=== PATIENT | male | born 1935 | race Caucasian/White ===

== ENCOUNTER 2020-06-07 14:42 | Outpatient (CLI) | payer MEDICARE, OTHER, SELFPAY ==
--- NOTE | 2020-06-07 15:00 | USCV_ITS ---
Tacho Bong Age: 85 Gender: M : 1935 Exam Date: 06/07/2020 14:30 Ordering Phys: Trever Myrick DPM Technologist: Exam Location: [facility] [place]_ Indication: PREOPERATIVE RIGHT LEFT Brachial 116.00 mmHg Brachial 113.00 mmHg Pressure (mmHg) Waveform Pressure (mmHg) Waveform Pre-Exercise Toe Pressure 100.00 Pre-Exercise Toe/Brachial Index 0.86 FINDINGS Noncompressible arteries of the left ankle. Normal resting TBI on the left side. PVR waveforms showing loss of dicrotic notch. CONCLUSIONS Features of arterial sclerosis with no significant arterial obstruction, based on the above findings on the left side. Dr Bertin Montaño MD [facility] (Electronically Signed) Final Date: 08 June 2020 08:58 S
== END 2020-06-07 14:43 | disposition home or self-care (01) ==
LOC: US 14:44
PROVIDERS: PCP Physician Assistant Medical; Visit Provider Podiatrist Foot & Ankle Surgery
DX: Z01.818 Encounter for other preprocedural examination (principal)
CPT/HCPCS: 93922

== ENCOUNTER → 2020-06-17 10:16 | Outpatient (BNVA) | payer MEDICARE, OTHER, SELFPAY | PROVIDERS: PCP Physician Assistant Medical; Visit Provider Podiatrist Foot & Ankle Surgery | DX: M20.32 Hallux varus (acquired), left foot (principal); M20.42 Other hammer toe(s) (acquired), left foot | CPT/HCPCS: 73630 ==

== ENCOUNTER 2020-06-18 05:56 | Day surgery (SDC) | payer MEDICARE, OTHER, SELFPAY ==
[2020-06-18 06:31] VITALS: BP 141/87; PULSE 61; RESP 16; TEMP 36.6; O2SAT 97
[2020-06-18] MEDS: sodium chloride 0.9% 1,000 ML 30 ML IV (06:49)
--- NOTE | 2020-06-18 06:54 | W.PM.OPSUD ---
Surgery/Procedure H&P Update DATE OF PROCEDURE: June 18, 2020 DATE H&P PERFORMED: 05/31/20 H&P UPDATE INFORMATION: I have reviewed H&P completed within last 30 days, I have examined patient prior to procedure, No changes to prior documentation and H&P is in [facility] EMR on date indicated PREOP DIAGNOSIS: Left hallux malleus deformity. PLANNED PROCEDURE: Operation Date: 06/18/20 07:00 Proposed Procedures p Left Hallux Interphalangeal Joint Fusion 31986 17392 M20.32 L97.522(Left) - Trever Myrick DPM s Left peroneal longus to peroneal brevis tenodesis 80142(Left) - Trever Myrick DPM
--- NOTE | 2020-06-18 06:55 | P.OP_ITS ---
Operative Report Date of procedure: June 18, 2020 Pre-op Diagnosis: Left hallux malleus deformity. Post-op diagnosis: same Post-op Findings: None Procedure Done: Left hallux interphalangeal joint arthrodesis and transfer of extensor hallucis longus tendon to first metatarsal CPT code 25415 Implants: [place] 3.0 mm headless screw x22 mm. [place] 3.0 mm headless screw by 18 mm. Bio-Tenodesis screw provided by [employer] 6 mm x 20 mm. 4-0 Vicryl, 4-0 nylon. 20 cc of Exparel postoperatively. 30 cc of 0.5% Marcaine plain preoperatively. Specimens removed/disposition: None Pathology: none sent Surgeon: Trever Myrick D.P.M. Science Specialist: Babatunde Anesthesia: MAC Estimated blood loss: 5 mL Tourniquet time: See intraoperative documentation IV fluids: None Urine output: None Complications: None Condition: stable Disposition: PACU Brief History: Mr. Titus is a pleasant 85-year-old male with persistent pain and wound formation at the dorsal aspect of his left hallux interphalangeal joint. Conservative measures have been exhausted consisting of supportive and accommodative shoes with high toe box, padding, spacers, gel sleeves and Band- Aids as well as recurring wound care. His toe is in a nonreducible hallux malleus position and dorsiflexed. He is wishing to pursue surgical options at this time as conservative measures are not yielding results and he continues to have pain with daily activities. Recommending a left hallux interphalangeal joint arthrodesis with extensor hallucis longus tendon transfer to first metatarsal. Risks include pain, bleeding, numbness, infection, persistent swelling, surgical site dehiscence, bruising, neuropraxia, neuritis, nonunion, delayed union, malunion, hardware failure, hardware irritation, deep hardware infection, need for further surgical intervention and need for antibiotic therapy. Patient is agreeable wishes to proceed. No guarantees written, expressed or implied. Procedure: Under mild sedation the patient was brought to the operating room and placed on the operating table in supine position. A timeout was performed. Anesthesia was administered by the anesthesia service. Local anesthesia injected by myself consisting of 30 cc of 0.5% Marcaine plain. Well-padded pneumatic tourniquet applied to the left ankle. Left lower extremity was scrubbed, prepped and draped utilizing normal aseptic technique. Left foot was examined a weighted with an Esmarch bandage and the ankle was inflated to 250 mmHg. Attention was directed to the dorsal aspect of the left hallux interphalangeal joint where 2 semi-elliptical converging incisions were carried out in a transverse fashion just dorsal to the left hallux interphalangeal joint skin bridge was removed and passed from operative field. Dissection carried down to the joint which was significant arthrosis. Sagittal saw utilized to resect head of the proximal phalanx and base of the distal this was passed from operative field. Area was flushed with saline solution followed by subchondral drilling and fixation utilizing [employer] 3.0 headless screws there was a 22 mm screw and 18 mm screw with excellent bony apposition and compression noted. Temporary fixation was removed. Position confirmed with intraoperative fluoroscopy noted to be appropriate. Incision site was flushed with saline solution. Capsular and periosteal and subcutaneous tissue structures reapproximated utilizing 4-0 Vicryl. Skin reapproximated utilizing 4-0 nylon. Attention was then directed to the dorsum of the first metatarsal and the extensor hallucis longus tendon was palpated just medial to the tendon and a linear longitudinal incision was made 1 cm in length tendon was identified and transected and passed through the first metatarsal from dorsal to plantar utilizing a Jose Free needle and fixated utilizing a Bio-Tenodesis screw provided by [employer] this was a 6 mm x 20 mm screw with excellent bony apposition and compression noted. Reduction of the first ray plantarflexion was appreciated in an improved anatomical rectus hallux interphalangeal joint also appreciated. Incision site was flushed with saline solution. Periosteum and subcutaneous tissue closed with 4-0 Vicryl. Skin closed with 4-0 nylon. The incision sites were dressed with nonadherent Adaptic, sterile 4 x 4's, Kerlix and Al wrap. Postop shoe was applied. Tourniquet when deflated I appreciated a prompt hyperemic response noted to the distal digits of the left foot. Patient tolerated the procedure well and was transferred to the PACU with vital signs stable and vascular status intact. Following a period of postoperative monitoring he will be discharged home may be limited weightbearing with a postop shoe otherwise to elevate and rest his left foot. Will follow-up in 1 week in podiatry clinic for nursing visit and dressing change. Pain medication sent to [facility]. Also of note prior to closure of skin total of 20 cc of Exparel utilized for postoperative pain control.
--- NOTE | 2020-06-18 06:57 | P.ANESASSM_ITS ---
Pre-Anesthetic Assessment Pre-Anesthetic Assessment: Height/Weight: Height 1.83 m Weight 96.162 kg Temp Pulse Resp BP Pulse Ox 97.8 F 61 16 141/87 97 06/18/20 06:31 06/18/20 06:31 06/18/20 06:31 06/18/20 06:31 06/18/20 06:31 Preop Diagnosis: Left hallux malleus deformity. Proposed Procedure: Operation Date: 06/18/20 07:00 Proposed Procedures p Left Hallux Interphalangeal Joint Fusion 26790 57915 M20.32 L97.522(Left) - Trever Myrick DPM s Left peroneal longus to peroneal brevis tenodesis 04166(Left) - Trever Myrick DPM Was Beta Bennett taken within 24 hours: N/A Last intake: Intake Last Liquid Date 06/17/20 Last Liquid Time 21:00 Last Solid Date 06/17/20 Last Solid Time 18:30 Social: Social History: No alcohol and No tobacco Exam: Pre-Anes Outpt Exam: alert, oriented x 3, clear to auscultation bi laterally and regular rate & rhythm Airway: Submandibular: WNL Cervical ROM: WNL MP: 2 History/ROS: No significant history except as noted Pulmonary: Pulmonary: None reported CV/HEM: CV/HEM: None reported : : None reported Hepatic: Hepatic: None reported GI: GI: GERD Metabolic: Metabolic: Thyroid Musc/skel: Musc/skel: OA/DJD Neuropsych: Neuropsych: Anxiety Comments: very hard of hearing Anesthetic Plan: ASA status: 2 Anesthesia: Anesthesia Evaluation and MAC Risk of > 500 ml blood loss (7ml/kg in children): No Meds/Allergies Current Medications: Current Medications Generic Name Dose Route Start Last Admin Trade Name Freq PRN Reason Stop Dose Admin Sodium Chloride 1,000 mls @ 30 ml s/hr 06/18/20 06:00 06/18/20 06:49 Sodium Chloride 0.9% IV 06/19/20 05:59 30 mls/hr .Q24H RACHELLE Administration PFSH Anesthesia PFSH: Medical History Glaucoma History of MRSA infection Hypothyroid Restless leg syndrome Surgical History Artificial knee joint present H/O knee surgery History of ankle surgery Family History Denies family history of Diabetes Cancer Data Anesthesia Cardiac Studies: No Data to Display
--- NOTE | 2020-06-18 08:20 | XR_ITS ---
WS: [id number] Left foot, 3 views, 06/18/2020 Clinical Data: post op Comparison: Left foot, 06/17/2020. Findings: The patient has had the flexion deformity of the left first toe reduced and there are 2 orthopedic pi ns fusing the left first IP joint. The hammertoe deformities of the second through fifth toes remains the same. XR/XR foot LT min 3V* [id number] Impression: Fusion of the left first toe IP joint with correction of flexion deformity.
[2020-06-18 08:25] VITALS: BP 128/81; PULSE 67; RESP 16; TEMP 36.3; O2SAT 95
[2020-06-18 08:40] VITALS: BP 134/91; PULSE 66; RESP 16; TEMP 36.6; O2SAT 96
--- NOTE | 2020-06-18 09:00 | ANE.PACU2 ---
Inpatient post-anesthesia follow up: Airway intact: Yes Vital signs: Temperature 98 F Pulse Rate 66 Respiratory Rate 16 Blood Pressure 134/91 Pulse Oximetry 96 Oxygen Delivery Me thod Room Air Oxygen Flow Rate Fraction of Inspir ed Oxygen Hydration adequate: Yes Nausea and vomiting: No Pain level: 1 Mental status: Baseline
== END 2020-06-18 09:10 | disposition home or self-care (01) ==
PROVIDERS: PCP Physician Assistant Medical; Visit Provider Podiatrist Foot & Ankle Surgery
PROC: (CPT 28750; principal; 2020-06-18 07:00)
PROC: (CPT 28740; 2020-06-18 07:00)
DX: M20.32 Hallux varus (acquired), left foot (principal); K21.9 Gastro-esophageal reflux disease without esophagitis; M19.90 Unspecified osteoarthritis, unspecified site; Z86.14 Personal history of Methicillin resistant Staphylococcus aureus infection; E03.9 Hypothyroidism, unspecified
CPT/HCPCS: 28760; 12345; 73630; C1713; C9290; J0690; J2704; J3490; J7030

== ENCOUNTER → 2020-07-01 15:03 | Outpatient (BNVA) | payer MEDICARE, OTHER, SELFPAY | PROVIDERS: PCP Physician Assistant Medical; Visit Provider Podiatrist Foot & Ankle Surgery | DX: M20.42 Other hammer toe(s) (acquired), left foot (principal); L97.522 Non-pressure chronic ulcer of other part of left foot with fat layer exposed; M20.32 Hallux varus (acquired), left foot | CPT/HCPCS: 73630 ==

== ENCOUNTER → 2020-07-14 13:07 | Outpatient (BNVA) | payer MEDICARE, OTHER, SELFPAY | PROVIDERS: PCP Physician Assistant Medical; Visit Provider Podiatrist Foot & Ankle Surgery | DX: M20.42 Other hammer toe(s) (acquired), left foot (principal); L97.522 Non-pressure chronic ulcer of other part of left foot with fat layer exposed; M20.32 Hallux varus (acquired), left foot; Z98.890 Other specified postprocedural states | CPT/HCPCS: 73630 ==

== ENCOUNTER → 2020-11-22 13:26 | Outpatient (BNVA) | payer MEDICARE, OTHER, SELFPAY | PROVIDERS: PCP Physician Assistant Medical; Visit Provider Podiatrist Foot & Ankle Surgery | DX: Z98.890 Other specified postprocedural states (principal); M20.42 Other hammer toe(s) (acquired), left foot; L97.522 Non-pressure chronic ulcer of other part of left foot with fat layer exposed; M20.32 Hallux varus (acquired), left foot; Z98.1 Arthrodesis status | CPT/HCPCS: 73630 ==

== ENCOUNTER → 2021-11-15 00:01 | Outpatient (BNVA) | payer MEDICARE, OTHER, SELFPAY | PROVIDERS: PCP Physician Assistant Medical; Visit Provider Podiatrist Foot & Ankle Surgery | DX: Z20.822 Contact with and (suspected) exposure to COVID-19 (principal); Z01.818 Encounter for other preprocedural examination | CPT/HCPCS: 87635 ==

== ENCOUNTER 2021-11-18 05:54 | Day surgery (SDC) | payer MEDICARE, OTHER, SELFPAY ==
[2021-11-17 12:52] VITALS: BMI 29.1
--- NOTE | 2021-11-18 | SCC_ITS ---
Procedure done: Deep hardware removal and arthrodesis of right hallux interphalangeal joint for correction of hallux malleus and painful hardware. CPT codes 76213 and 51810 9 seconds of fluoroscopic guidance, for a cumulative dose of 0.1 mGy, was provided to Dr. Myrick by the radiology department. C-arm images of the RIGHT footwere saved for the patient's permanent record. [facility]
[2021-11-18 06:23] VITALS: BP 157/104; PULSE 63; RESP 16; TEMP 36.3; O2SAT 96
[2021-11-18] MEDS: sodium chloride 0.9% 1,000 ML 30 ML IV (06:35)
--- NOTE | 2021-11-18 06:52 | ANES.PREANE2 ---
Pre-Anesthetic Assessment Height/Weight: Height 1.83 m Weight 97.522 kg Temp Pulse Resp BP Pulse Ox 97.3 F L 63 16 157/104 96 11/18/21 06:23 11/18/21 06:23 11/18/21 06:23 11/18/21 06:23 11/18/21 06:23 Preop Diagnosis: Painful hardware and hallux malleus left. Operation Date: 11/18/21 07:00 Proposed Procedures p Hardware Removal left foot 55707/79588/T84.84XA/M20.32(Left) - Trever Myrick DPM s Arthrodesis Foot(Left) - Trever Myrick DPM Familial anesthetic complications: None Was Beta Bennett taken within 24 hours: N/A Was Clonidine taken within 24 hours: N/A Last intake: Intake Last Liquid Date 11/17/21 Last Liquid Time 20:00 Last Solid Date 11/17/21 Last Solid Time 18:00 Social No alcohol and No tobacco Exam alert, oriented x 3, clear to auscultation bilaterally and regular rate & rhythm Airway Submandibular: within normal limits Cervical ROM: within normal limits Mallampati: Class II Dentition: chipped CV/HEM Peripheral Vascular Disease GI Gastroesophageal Reflux Disease Metabolic Thyroid Disease Neuropsych Neuropathy Anesthetic Plan ASA status: 3 Anesthesia: MAC Medications/Allergies Home Medications Medication Instructions Recorded Confirmed Last Taken Type levothyroxine 175 mcg tablet 175 mcg PO DAILY 12/15/19 11/18/21 11/17/21 History omeprazole 20 mg capsule,delayed 20 mg PO DAILY 12/15/19 11/18/21 11/17/21 History release ropinirole 4 mg tablet 4 mg PO BEDTIME 12/15/19 11/18/21 11/17/21 History aspirin 81 mg chewable tablet 81 mg PO DAILY 06/17/20 11/18/21 11/17/21 History timolol maleate 0.5 % eye drops 1 drp OPHTHALMIC (EYE) DIRECTED 06/17/20 11/18/21 11/18/21 History cephalexin 500 mg capsule 500 mg PO Q8H 11/17/21 11/18/21 11/17/21 History sertraline 25 mg tablet 25 mg PO DAILY 11/17/21 11/18/21 11/17/21 History tolterodine 2 mg capsule,extended 2 mg PO DAILY 11/17/21 11/18/21 11/17/21 History release 24 hr Allergies Allergy/AdvReac Type Severity Reaction Status Date / Time methazolamide Allergy Intermediate hives Verified 11/17/21 12:47 [From Neptazane] ibuprofen Allergy ALGY-Rash Verified 11/17/21 12:47 tamsulosin [From Flomax] Allergy ALGY-Rash Verified 11/17/21 12:47 Current Medications Generic Name Dose Route Start Last Admin Trade Name Freq PRN Reason Stop Dose Admin Sodium Chloride 1,000 mls @ 30 mls/hr 11/18/21 06:15 11/18/21 06:35 Sodium Chloride 0.9% IV 11/19/21 06:14 30 mls/hr .Q24H RACHELLE Administration PFSH Anesthesia Medical History Glaucoma History of MRSA infection Hypothyroid Restless leg syndrome Surgical History Artificial knee joint present H/O knee surgery History of ankle surgery Family History Denies family history of Diabetes Cancer Social History Smoking and tobacco status: never smoked Data Anesthesia Cardiac Studies: No Data to Display
[2021-11-18] MEDS: lidocaine 1% INJ 20 mL 15 ML XX (07:19)
--- NOTE | 2021-11-18 07:51 | P.OP_ITS ---
Operative Report Date of procedure: November 18, 2021 Pre-op diagnosis: Painful hardware and hallux malleus left. Post-op diagnosis: Same Post-op findings: None Procedure done: Deep hardware removal and arthrodesis of right hallux interphalangeal joint for correction of hallux malleus and painful hardware. CPT codes 37576 and 10977 Implants: 4.0 mm headed [place] screw 26 mm in length. 4-0 Vicryl, 4-0 nylon. Specimens removed/disposition: None Pathology: None Surgeon: Trever Myrick D.P.M. [employer] Craftsman: Karie Estimated blood loss: Less than 5 30 IV fluids: 0 Urine output: 0 Complications: None Findings: None Brief History: Patient is a pleasant 86-year-old male with painful retained hardware that has failed at the arthrodesis site of left great toe hallux interphalangeal joint. Recommended hardware removal and resection of nonunion with arthrodesis of the left hallux interphalangeal joint. Patient is agreeable wishes to proceed. N.p.o. since midnight. Covid screening negative. Risks include pain, bleeding, numbness, infection, hardware failure, delayed union, malunion, nonunion, transfer pressure, transfer lesion, swelling and chronic numbness, need for further surgical intervention. Patient is agreeable wishes to proceed. Procedure: Under mild sedation the patient was brought to the operating room and remained on the gurney in supine position. A timeout was performed. Anesthesia was then administered by the anesthesia service. Local anesthesia injected by myself consisting of one-to-one mixture 1% lidocaine and 0.5% Marcaine plain and a left hallux block fashion. Well-padded pneumatic tourniquet applied to the left ankle. The left lower extremity was then scrubbed, prepped and draped utilizing normal aseptic technique. Left foot was exanguinated with an Esmarch bandage and a tourniquet inflated to 250 mmHg. Attention was directed to the dorsal aspect of the left great toe where prior hardware was palpated medially, percutaneous incision was made and the hardware was removed this was a 3.0 mm Claire screw this was passed in operative field, and like fashion the second screw was removed laterally. Both incisions were flushed with saline solution and closed with 4-0 nylon. Attention was directed to the hallux interphalangeal joint of the left foot where a transverse semielliptical incision was made converging in nature and a skin bridge passed from the operative field, osteotomy through the distal and proximal phalanx was performed followed by saline flush, subchondral drilling and fixation for arthrodesis site utilizing a Claire 4 mm headed screw with excellent bony apposition and compression noted without violating the first metatarsophalangeal joint. Incision was then flushed with saline solution. Intraoperative C arm utilized to confirm placement of the fixation noted to be excellent and within the mid body of the distal and proximal phalanx. Closure with 4-0 Vicryl subcutaneous tissue and tendinous structures as well as 4-0 nylon at skin. Dressing consisting of Adaptic, sterile 4 x 4, Kerlix, Al wrap and postop shoe was applied. Tourniquet was deflated and a prompt hyperemic response was noted to the distal digits of the left foot. Patient tolerated the procedure and anesthesia well and was transferred to the PACU with vital signs s table vascular status intact. Following a period of postop monitoring he will be discharged home is utilize a postop shoe or cam boot at all times otherwise he is to rest and elevate.
--- NOTE | 2021-11-18 07:51 | W.PM.OPSUD ---
Surgery/Procedure H&P Update DATE OF PROCEDURE: November 18, 2021 DATE H&P PERFORMED: 11/15/21 CHANGES TO PREVIOUS DOCUMENTATION: none PREOP DIAGNOSIS: Painful hardware and hallux malleus left. PLANNED PROCEDURE: Operation Date: 11/18/21 07:00 Proposed Procedures p Hardware Removal left foot 49654/51664/T84.84XA/M20.32(Left) - Trever Myrick DPM s Arthrodesis Foot(Left) - Trever Myrick DPM
[2021-11-18 07:53] VITALS: BP 135/82; PULSE 62; RESP 18; TEMP 36.3; O2SAT 96
[2021-11-18 08:00] VITALS: BP 130/92; PULSE 63; RESP 16; TEMP 36.8; O2SAT 98
--- NOTE | 2021-11-18 16:18 | ANE.PACU2 ---
Inpatient post-anesthesia follow up: Airway intact: Yes Vital signs: Temperature 98.2 F Pulse Rate 63 Respiratory Rate 16 Blood Pressure 130/92 Pulse Oximetry 98 Oxygen Delivery Me thod Room Air Oxygen Flow Rate Fraction of Inspir ed Oxygen Hydration adequate: Yes Nausea and vomiting: No Pain level: 1 Mental status: Baseline
== END 2021-11-18 08:30 | disposition home or self-care (01) ==
PROVIDERS: PCP Registered Nurse; Visit Provider Podiatrist Foot & Ankle Surgery
PROC: (CPT 20680; principal; 2021-11-18 07:00)
PROC: (CPT 28740; 2021-11-18 07:00)
DX: M20.42 Other hammer toe(s) (acquired), left foot (principal); T84.84XA Pain due to internal orthopedic prosthetic devices, implants and grafts, initial encounter; I73.9 Peripheral vascular disease, unspecified; K21.9 Gastro-esophageal reflux disease without esophagitis; Z79.82 Long term (current) use of aspirin; Z86.14 Personal history of Methicillin resistant Staphylococcus aureus infection
CPT/HCPCS: 20680; 28755; 76000; C1713; J0690; J2704; J3010; J3490; J7030

== ENCOUNTER → 2021-12-29 12:55 | Outpatient (BNVA) | payer MEDICARE, OTHER, SELFPAY | PROVIDERS: PCP Family Medicine; Visit Provider Podiatrist Foot & Ankle Surgery | DX: Z98.890 Other specified postprocedural states (principal) | CPT/HCPCS: 73630 ==

== ENCOUNTER 2022-01-11 08:50 | Outpatient (CLI) | payer MEDICARE, OTHER, SELFPAY ==
[2022-01-11 11:21] LABS: Basophils % 0.6 %; Eosinophils # 0.5 10^3/uL (0.0-0.8); Eosinophils % 8.1 %; Hematocrit 41.8 % (42.0-52.0); Hemoglobin 12.7 g/dL (11.7-16.6); Lymphocytes # 1.6 10^3/uL (0.8-4.8); Lymphocytes % 25.7 %; Mean Corpuscular HGB Conc 30.4 g/dL (30.0-36.0); Mean Corpuscular Hemoglobin 24.8 pg (28.0-34.0); Mean Corpuscular Volume 81.6 fl (80-94); Mean Platelet Volume 9.8 fL (7.4-10.4); Monocytes # 0.5 10^3/uL (0.2-0.9); Monocytes % 8.6 %; Neutrophils # 3.51 10^3/uL (1.8-7.7); Neutrophils % 56.7 %; Nucleated Red Blood Cells % 0 %; Platelet Count 245 10^3/cmm (130-400); Red Blood Count 5.12 10^6/uL (4.1-5.3); Red Cell Distribution Width 16.5 % (12.1-15.1); White Blood Count 6.2 10^3/uL (4.0-10.0)
[2022-01-11 11:27] LABS: Erythrocyte Sedimentation Rate 31 mm/hr (0-10)
[2022-01-11 11:52] LABS: Calcium 9.7 mg/dL (8.5-10.5)
[2022-01-11 12:19] LABS: Alanine Aminotransferase < 5 U/L (0-41); Albumin Level 3.8 g/dL (3.5-5.2); Alkaline Phosphatase 124 IU/L (40-130); Anion Gap 15.7 (5-19); Aspartate Amino Transferase 15 U/L (0-40); Blood Urea Nitrogen 22 mg/dL (8-23); Calcium 9.7 mg/dL (8.5-10.5); Carbon Dioxide 22 mmol/L (22-29); Chloride 105 mmol/L (98-107); Globulin 3.7 g/dL (1.3-4.6); Glucose 88 mg/dL (65-115); Homocysteine 16.93; Iron 46 ug/dL (59-158); Lactate Dehydrogenase 166 U/L (135-225); Osmolality Calculated 289 mOsm/kg (285-295); Percent Saturation 27.5 % (20-50); Potassium 4.7 mmol/L (3.5-5.1); Sodium 138 mmol/L (136-145); Total Bilirubin 0.3 mg/dL (0.15-1.2); Total Iron Binding Capacity 167 mcg/dl; Total Protein 7.5 g/dL (6.6-8.7); Unsaturated Iron Binding 121 ug/dL (112-347)
[2022-01-11 12:35] LABS: Vitamin B12 356 pg/mL (232-1245)
[2022-01-11 12:44] LABS: Immunoglobulin IGA 214 mg/dL (70-400); Immunoglobulin IGG 1204 mg/dL (700-1600)
[2022-01-11 13:31] LABS: Immunoglobulin IGM 1007 mg/dL (40-230)
[2022-01-11 13:47] LABS: LAB Peripheral Smear Sent for Review
[2022-01-11 14:08] LABS: Parathyroid Hormone 139.3 pg/mL (15-65)
[2022-01-12 09:37] LABS: PROTEIN, TOTAL 6.8 g/dL (6.1-8.1)
--- NOTE | 2022-01-12 10:09 | ONC CON_ITS ---
Dr. Pruitt New Patient Note Patient: Bong Titus Unit #: [id number]: 1935 Dicatated By: Morro Pruitt M.D.Date of Visit: Jan 11, 2022 Onc MED New Patient/Consult Referring Physician: Dr. DANGELO RIGGS M.D. Dr. Dom Stinson M.D. Chief Complaint: Anemia/monoclonal gammopathy. History of Present Illness: This is an 86 year-old man with a history of iron deficiency anemia. He has now been found to have a low level IgM monoclonal gammopathy. His medical history is significant for having undergone bilateral total knee arthroplasty in 1990 and again in . He had subsequently developed staph infection in his knee joints, apparently with associated bacteremia. He had been able to preserve the prosthetic joints, though he had remained on chronic antibiotic suppression with doxycycline. I had seen him in August 2013 in regard to a mild anemia. There did appear to be some component of iron deficiency, but he had remained mildly anemic despite having been given parenteral iron replacement on 2 occasions. I had last seen him in January 2015. At that time he was still mildly anemic with hemoglobin 11.2 g. His renal function was normal with BUN 24 and creatinine 1.04 mg/dL. His calcium, though, was slightly elevated at 10.5 mg/dL. During follow-up care with Dr. Stinson he continued to have mild anemia. He also developed stage III chronic kidney disease, and he was noted to have mild hypercalcemia. His CBC from 08/30/2021 showed hemoglobin mildly decreased at 11.0 g with hematocrit 34.8%. The red cell indices were borderline low. The white blood cell count was 9100 and the platelet count was 338,000. His comprehensive metabolic profile showed elevated BUN and creatinine at 26 and 1.52 mg/dL. Calcium was slightly elevated at 11.0 mg/dL. The bilirubin and liver enzymes were normal. His further laboratory studies on 11/21/2021 included a serum protein electrophoresis which showed an IgM lambda monoclonal protein quantitating at 1.3 g/dL. His parathyroid hormone level was mildly elevated at 112 pg/mL. TSH was normal at 2.16 mIU/L. He is seen now in regard to the monoclonal gammopathy. He feels tired/fatigued and he has limited activity. He still piddles around in his shop, and he is able to do some light work. His ECOG score is 1. Appetite has been good. His weight has been stable. He has no fever or night sweats. He has sinus drainage. Has not had sore mouth or throat. He has some cough with the drainage. He is sometimes short of breath. He does not complain of chest pain. Recently he has had some nausea. He still has some heartburn/acid reflux despite taking Prilosec. He previously had been taking Tums, but that was stopped because of the high calcium. Bowel function has been okay. He has urinary frequency and nocturia. He has chronic pain in the right knee and leg. He also has joint pain in his hands and shoulders. He occasionally has headache. He sometimes has dizziness. He has numbness in his hands and feet, which appears to be getting gradually worse. He has anxiety and depression. Past Medical History: His medical history includes anemia, anxiety, chronic kidney disease (stage III), degenerative arthritis, depression, gastroesophageal reflux disease, glaucoma, hyperlipidemia, hypothyroidism, nephrolithiasis, and restless leg syndrome. 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 Medications: Aspirin 1 (81 mg) Tablet Oral daily, Cephalexin Capsule Oral, CVS Omeprazole 1 (20 mg) Tablet, enteric coated Oral b.i.d., Doxycycline Hyclate 1 Capsule (of 100 mg) Oral b.i.d., Fluticasone Propionate 2 [place](s) (of 50 mcg/act) Suspension Nasal daily, ICaps AREDS Formula Tablet Oral daily, Levothroid 1 (200 mcg) Tablet Oral daily, Lotemax (0.5 %) Gel (jelly) Ophthalmic four times a day, Naproxen Sodium 1 Tablet (of 220 mg) Oral every am, [place] 3-6-9 Fatty Acids Tablet, chewable Oral, ROPINIRole HCl 1 (4 mg) Tablet Oral at bedtime, Sertraline HCl 1 Tablet (of 25 mg) Oral daily, Stool Softener Laxative 1 Capsule (of 100 mg) Oral b.i.d. PRN, Timolol Hemihydrate 1 (0.5 %) Solution Ophthalmic daily, Tolterodine Tartrate ER 1 Capsule (of 2 mg) Capsule SR 24 HR Oral daily, vitamin d3-folic acid 1 Tablet (of 5000 Unit(s)) Oral daily Allergies: Chlorhexidine, FLUoxetine HCl, HYDROcodone-Acetaminophen, Ibuprofen, Iodinated Contrast Media, Lovastatin, methazolAMIDE, NSAIDS, Oxybutynin Chloride, Providone Iodine, SULFA, Tamsulosin HCl, and Trimethoprim. Social History: Mr. Titus is and he is retired. He is a non-smoker. He does not drink alcohol. Family History: Father of heart attack at age 69. Mother had diabetes and she had a stroke. She ultimately of old age. A sister in a motor vehicle accident. Another sister of stroke following brain surgery. A brother has heart disease. Review Of Symptoms: Constitutional - He feels tired. He has limited activity, but he is able to do light work. Appetite is good and weight is stable. He has no fever or night sweats. ECOG score is 1, Eyes - No change in vision. He has glaucoma, ENMT - He has hearing loss and tinnitus. He has sinus congestion/drainage. No mouth sores. No sore throat or difficulty swallowing, Hematologic/Lymphatic - He has easy bruising, Respiratory - He sometimes gets short of breath. He has cough with the sinus drainage. No pleuritic pain or hemoptysis, Cardiovascular - No angina pain. No palpitations, Gastrointestinal - Recently has had some nausea. He has heartburn/acid reflux. No diarrhea or constipation. No blood in the stool or black stools, Genitourinary (M) - No dysuria or hematuria. He has urinary frequency and nocturia. No urgency or incontinence, Musculoskeletal - He has chronic pain in the right knee and leg. He also has pain in his shoulders and hands, Integumentary - No skin rash or other skin changes, Neurologic - He occasionally has headache. He sometimes has dizziness. He has numbness in his hands and feet, Psychiatric - He has a history of depression. Vital Signs: Performed on Jan 11, 2022 09:18: 0, 0, 28.48, 2.18 sq.m, 72.00 in, 98 %, 71 /min, 17 /min, 140/82 mm(hg), 97.0 F (LOW), and 210 lbs (HIGH). Physical Examination: Constitutional - He looks pretty good generally, Eyes - Sclerae nonicteric. Conjunctivae clear, ENMT - No lesions noted in the oral cavity, Hematologic/Lymphatic - No cervical, clavicular, or axillary adenopathy, Respiratory - Lungs are clear with good air movement bilaterally, Cardiovascular - Heart rhythm is regular. There is a III/ systolic murmur which is loudest at the apex. There is no gallop or rub noted, Abdomen - Soft and non-tender. Liver and spleen are not enlarged. There is no abdominal mass or ascites noted and there is no inguinal adenopathy, Extremities - There is some chronic swelling at the right ankle. There is otherwise no edema. There are degenerative arthritis changes in both hands, Integumentary - No rashes. No suspicious skin lesions noted, Neurologic - No focal neurologic deficits noted. Problem List: 1. IgM monoclonal gammopathy of undetermined significance. 2. Mild anemia, which is chronic. There may still be some component of iron deficiency. Other potential contributing factors would be chronic kidney disease and the possibility of an underlying lymphoproliferative disorder. 3. Mild hypercalcemia. This appears to be a fairly longstanding duration, and it may be due to primary hyperparathyroidism. 4. Stage III chronic kidney disease. 5. 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 6. Hyperlipidemia. 7. Hypothyroidism. 8. GERD. 9. Degenerative arthritis. 10. Restless leg syndrome. 11. History of nephrolithiasis. 12. Glaucoma. 13. Anxiety and depression. Problems Addressed with this Encounter and Plan: 1. Patient with low level IgM monoclonal gammopathy. At this point the significance is uncertain. There is a possibility, though, of an underlying lymphoproliferative disorder (Waldenstrom's macroglobulinemia). To that end, it would be a potential cause for his peripheral neuropathy symptoms. It also could potentially be contributing to the anemia, though I rather doubt it. I also doubt that it is in any way related to the hypercalcemia. It is worth noting that there was no monoclonal protein detected on the protein electrophoresis with his initial evaluation in 2012. At least initially I will repeat his CBC and protein electrophoresis, and I also want to check quantitative immunoglobulin levels. At some point we will have to determine whether or not it will be beneficial to proceed with bone marrow aspiration/biopsy, the main concern being to what extent the monoclonal gammopathy may be contributing to his peripheral neuropathy. 2. He remains mildly anemic. This is probably a combination of iron deficiency and chronic disease anemia. I will repeat the serum iron studies, and he may require some additional parenteral iron replacement. 3. He has mild hypercalcemia. This appears to be a fairly longstanding duration, and it really has not worsened significantly. It may be due to primary hyperparathyroidism. I would like to repeat the PTH level and consider further treatment as indicated. Signed By: Morro Pruitt M.D. <<Signature on File>>
[2022-01-13 08:07] LABS: ABNORMAL PROTEIN BAND 1 0.9 g/dL (NONE DETECTED); ALBUMIN 3.5 g/dL (3.8-4.8); ALPHA 1 GLOBULIN 0.3 g/dL (0.2-0.3); ALPHA 2 GLOBULIN 0.7 g/dL (0.5-0.9); BETA 1 GLOBULIN 0.4 g/dL (0.4-0.6); BETA 2 GLOBULIN 0.4 g/dL (0.2-0.5); GAMMA GLOBULIN 1.6 g/dL (0.8-1.7)
[2022-01-14 15:47] LABS: Methylmalonic Acid 183 nmol/L (87-318)
== END 2022-01-11 08:51 | disposition home or self-care (01) ==
PROVIDERS: PCP Family Medicine; Visit Provider Internal Medicine Hematology & Oncology
DX: D47.2 Monoclonal gammopathy (principal); D50.9 Iron deficiency anemia, unspecified; E83.52 Hypercalcemia; N18.2 Chronic kidney disease, stage 2 (mild); E78.5 Hyperlipidemia, unspecified; E03.9 Hypothyroidism, unspecified; K21.9 Gastro-esophageal reflux disease without esophagitis; F41.9 Anxiety disorder, unspecified; F32.A Depression, unspecified; Z79.899 Other long term (current) drug therapy
CPT/HCPCS: 80053; 82310; 82607; 82784; 83090; 83540; 83550; 83615; 83921; 83970; 84155; 84165; 85025; 85651; 99205

== ENCOUNTER → 2022-04-03 10:09 | Outpatient (BNVA) | payer MEDICARE, OTHER, SELFPAY | PROVIDERS: PCP Family Medicine; Visit Provider Podiatrist Foot & Ankle Surgery | DX: Z98.890 Other specified postprocedural states (principal) | CPT/HCPCS: 99213 ==

== ENCOUNTER → 2022-08-02 09:50 | Outpatient (BNVA) | payer MEDICARE, OTHER, SELFPAY | PROVIDERS: PCP Family Medicine; Visit Provider Podiatrist Foot & Ankle Surgery | DX: I73.9 Peripheral vascular disease, unspecified (principal); G62.9 Polyneuropathy, unspecified; M20.42 Other hammer toe(s) (acquired), left foot; M20.32 Hallux varus (acquired), left foot | CPT/HCPCS: 99213 ==

== ENCOUNTER → 2022-11-01 12:48 | Outpatient (BNVA) | payer MEDICARE, OTHER, SELFPAY | PROVIDERS: PCP Family Medicine; Visit Provider Podiatrist Foot & Ankle Surgery | DX: I73.9 Peripheral vascular disease, unspecified (principal); G62.9 Polyneuropathy, unspecified; M20.42 Other hammer toe(s) (acquired), left foot; M20.32 Hallux varus (acquired), left foot | CPT/HCPCS: 11055; 11721 ==

== ENCOUNTER → 2023-01-30 10:13 | Outpatient (BNVA) | payer MEDICARE, OTHER, SELFPAY | PROVIDERS: PCP Family Medicine; Visit Provider Podiatrist Foot & Ankle Surgery | DX: I73.9 Peripheral vascular disease, unspecified (principal); L60.8 Other nail disorders; G62.9 Polyneuropathy, unspecified; M20.42 Other hammer toe(s) (acquired), left foot; M20.32 Hallux varus (acquired), left foot | CPT/HCPCS: 11055; 11721 ==

== ENCOUNTER → 2023-04-24 09:38 | Outpatient (BNVA) | payer MEDICARE, OTHER, SELFPAY | PROVIDERS: PCP Family Medicine; Visit Provider Podiatrist Foot & Ankle Surgery | DX: L60.8 Other nail disorders (principal); I73.9 Peripheral vascular disease, unspecified; G62.9 Polyneuropathy, unspecified; M20.42 Other hammer toe(s) (acquired), left foot; M20.32 Hallux varus (acquired), left foot; L60.3 Nail dystrophy; L84 Corns and callosities | CPT/HCPCS: 11056; 11721 ==

== ENCOUNTER → 2023-07-30 14:20 | Outpatient (BNVA) | payer MEDICARE, OTHER, SELFPAY | PROVIDERS: PCP Family Medicine; Visit Provider Podiatrist Foot & Ankle Surgery | DX: I73.9 Peripheral vascular disease, unspecified (principal); G62.9 Polyneuropathy, unspecified; M20.42 Other hammer toe(s) (acquired), left foot; M20.32 Hallux varus (acquired), left foot; L60.3 Nail dystrophy; L84 Corns and callosities | CPT/HCPCS: 11056; 11721 ==

== ENCOUNTER → 2023-10-30 12:54 | Outpatient (BNVA) | payer MEDICARE, OTHER, SELFPAY | PROVIDERS: PCP Family Medicine; Visit Provider Podiatrist Foot & Ankle Surgery | DX: I73.9 Peripheral vascular disease, unspecified (principal); G62.9 Polyneuropathy, unspecified; M20.42 Other hammer toe(s) (acquired), left foot; M20.32 Hallux varus (acquired), left foot; L60.3 Nail dystrophy; L84 Corns and callosities | CPT/HCPCS: 11056; 11721 ==

== ENCOUNTER → 2023-11-13 12:40 | Outpatient (BNVA) | payer MEDICARE, OTHER, SELFPAY | PROVIDERS: PCP Family Medicine; Referring Provider Nurse Practitioner Family; Visit Provider Nurse Practitioner Family | DX: D48.5 Neoplasm of uncertain behavior of skin (principal); L57.8 Other skin changes due to chronic exposure to nonionizing radiation; L81.4 Other melanin hyperpigmentation; L57.0 Actinic keratosis; L82.1 Other seborrheic keratosis; Z85.828 Personal history of other malignant neoplasm of skin | CPT/HCPCS: 11102; 17000; 69100; 99203 ==

== ENCOUNTER → 2023-12-11 08:36 | Outpatient (BNVA) | payer MEDICARE, OTHER, SELFPAY | PROVIDERS: PCP Family Medicine; Visit Provider Dermatology | DX: C44.229 Squamous cell carcinoma of skin of left ear and external auricular canal (principal) | CPT/HCPCS: 13152; 17311 ==

== ENCOUNTER → 2023-12-25 14:55 | Outpatient (BNVA) | payer MEDICARE, OTHER, SELFPAY | PROVIDERS: PCP Family Medicine; Visit Provider Dermatology | DX: Z48.817 Encounter for surgical aftercare following surgery on the skin and subcutaneous tissue (principal); Z48.02 Encounter for removal of sutures; Z85.828 Personal history of other malignant neoplasm of skin | CPT/HCPCS: 99213 ==

== ENCOUNTER → 2024-01-01 13:13 | Outpatient (BNVA) | payer MEDICARE, OTHER, SELFPAY | PROVIDERS: PCP Family Medicine; Visit Provider Podiatrist Foot & Ankle Surgery | DX: I73.9 Peripheral vascular disease, unspecified (principal); G62.9 Polyneuropathy, unspecified; L60.3 Nail dystrophy; L84 Corns and callosities | CPT/HCPCS: 11056; 11721 ==

== ENCOUNTER → 2024-01-15 13:15 | Outpatient (BNVA) | payer MEDICARE, OTHER, SELFPAY | PROVIDERS: PCP Family Medicine; Visit Provider Dermatology | DX: Z48.817 Encounter for surgical aftercare following surgery on the skin and subcutaneous tissue (principal); L57.0 Actinic keratosis; L82.0 Inflamed seborrheic keratosis; Z85.828 Personal history of other malignant neoplasm of skin; L57.8 Other skin changes due to chronic exposure to nonionizing radiation; L81.4 Other melanin hyperpigmentation | CPT/HCPCS: 17000; 17110; 99213 ==